=== PATIENT | female | born 1965 | race Caucasian/White ===

== ENCOUNTER 2023-11-15 16:27 | Inpatient (IN) | payer OTHER ==
[2023-11-15 16:54] VITALS: BMI 20.6
[2023-11-15] MEDS ORDERED: MAG HYDROX/AL HYDROX/SIMETH 30 ML UNIT-DOSE CUP PO PRN (17:54)
[2023-11-15] MEDS ORDERED: guaiFENesin 600 MG TABLET.ER (FP) PO PRN (17:54)
[2023-11-15] MEDS ORDERED: LOPERAMIDE HCL 2 MG CAPSULE PO PRN (17:54)
[2023-11-15] MEDS ORDERED: BENZOCAINE/MENTHOL (CHLORASEPTIC ) LOZENGE MM PRN (17:54)
[2023-11-15] MEDS ORDERED: MAGNESIUM HYDROX 2400MG/30ML ORAL SUSPENSION 30 ML CUP PO PRN (17:54)
[2023-11-15] MEDS ORDERED: ONDANSETRON *ODT* 4 MG TABLET SL PRN (17:54)
[2023-11-15] MEDS ORDERED: BENZONATATE 200 MG CAPSULE PO PRN (17:54)
[2023-11-15] MEDS ORDERED: POLYETHYLENE GLYCOL (HEALTHYLAX) 3350 17 GM PACKET PO PRN (17:54)
[2023-11-15] MEDS ORDERED: BISMUTH SUBSALICYLATE 524 MG/30 ML PO PRN (17:54)
[2023-11-15] MEDS ORDERED: DICYCLOMINE HCL 10 MG CAPSULE PO PRN (17:54)
[2023-11-15] MEDS: diazePAM 5 MG TABLET PO PRN (19:43)
[2023-11-15] MEDS: ACETAMINOPHEN 325 MG TABLET (FP) PO PRN (21:09)
[2023-11-15] MEDS: THIAMINE 100 MG TABLET PO SCH (22:22)
[2023-11-15] MEDS: hydrOXYzine PAMOATE 25 MG CAPSULE (FP) PO PRN (22:22)
[2023-11-15] MEDS: MELATONIN 5 MG TABLETS PO SCH (22:22)
[2023-11-15] MEDS: diazePAM 5 MG TABLET PO SCH (22:22)
[2023-11-16] MEDS: PRENATAL VITAMINS W/ FOLIC ACID TABLET (FP) PO SCH (10:19)
[2023-11-16] MEDS: IBUPROFEN 600 MG TABLET (FP) PO PRN (10:43)
[2023-11-16] MEDS: METHOCARBAMOL 500 MG TABLET PO PRN (22:10)
[2023-11-17] MEDS: diazePAM 5 MG TABLET PO SCH (05:40)
[2023-11-17] MEDS: LORazepam 0.5 MG TABLET PO PRN (11:21)
[2023-11-17] MEDS: LORazepam 0.5 MG TABLET PO SCH (14:58)
[2023-11-18] MEDS: LORazepam 0.5 MG TABLET PO SCH (05:48)
[2023-11-18] MEDS ORDERED: diazePAM 5 MG TABLET PO SCH (06:00)
[2023-11-18] MEDS: propRANOLol HCL 10 MG TABLET PO SCH (14:14)
[2023-11-18] MEDS: SUVOREXANT 10 MG TABLET PO PRN (22:15)
[2023-11-18] MEDS: propRANOLol HCL 10 MG TABLET PO ONE (22:16)
[2023-11-18] MEDS: IBUPROFEN 400 MG TABLET (FP) PO PRN (22:17)
[2023-11-19] MEDS: LORazepam 0.5 MG TABLET PO ONE (05:54)
[2023-11-19] MEDS ORDERED: diazePAM 5 MG TABLET PO ONE (06:00)
[2023-11-19 09:15] VITALS: BP 110/84; PULSE 71; RESP 16; TEMP 98
== END 2023-11-19 11:10 | disposition home or self-care (01) | DRG 775 ==
LOC: YASAS 16:27 → Y6N 18:35
PROVIDERS: ADMIT Allergy & Immunology; ATTEND Surgery
PROC: HZ2ZZZZ Detoxification Services for Substance Abuse Treatment (ICD-10-PCS; principal; 2023-11-15)
DX: F10.230 Alcohol dependence with withdrawal, uncomplicated (principal); F10.280 Alcohol dependence with alcohol-induced anxiety disorder; F10.282 Alcohol dependence with alcohol-induced sleep disorder; F41.8 Other specified anxiety disorders
CPT/HCPCS: 80305; 80307; 93005; 93010